=== PATIENT | female | born 1990 | race Caucasian/White ===

== ENCOUNTER 2018-04-12 18:52 | Emergency (ER) | payer BC ==
--- NOTE | 2018-04-12 19:06 | Emergency Department Record ---
History of Present Illness - General Chief Complaint: Abdominal Pain Stated Complaint: ABDOMINAL PAIN Time Seen by Provider: 04/12/18 18:59 Source: Patient Mode of Arrival: Ambulatory Limitations: No limitations - History of Present Illness Initial Comments: 28 yo female presents with lower abdominal pain. She has been have on and off pelvic pain since December or even a little before. The pain goes across the lower abdomen on the right and left. She has had some whitish discharge. No bleeding. No vomiting or diarrhea. No fevers. She saw her OB in the last month and had an US 2 weeks ago on 03/29. There was a 3.2cm SERINA. IUD intact. ( office note and US reviewed). Repeat the US in 4-6 weeks was the recommendation. He provider is Desire Jacobsen MD Complaint: Abdominal pain Onset/Timin -: Minutes(s) Radiation: None Migration to: No migration Severity: Mild Severity scale (1-10): 7 Quality: Stabbing, Other Consistency: Intermittent Improves With: Nothing Worsens With: Nothing Associated Symptoms: Denies other symptoms - Related Data LMP (females 10-50): other Previous Rx's Medication Instructions Recorded Nitrofurantoin Monohyd/M-Cryst 100 mg PO BID #14 capsule 04/12/18 [Macrobid 100 mg Capsule] Allergies Allergy/AdvReac Type Severity Reaction Status Date / Time Latex, Natural Rubber Allergy Intermediate RASH Unverified 02/17/18 08:43 Travel Screening - Travel/Exposure Within Last 30 Days Have you traveled within the last 30 days?: No - Travel/Exposure Within Last Year Have you traveled outside the [place] in the last year?: No - Additonal Travel Details Have you been exposed to anyone with a communicable illness?: No - Travel Symptoms Symptom Screening: None Review of Systems Constitutional: Denies: Chills, Fever, Malaise, Weakness Eyes: Denies: Eye discharge ENT: Denies: Congestion, Throat pain Respiratory: Denies: Cough Cardiovascular: Denies: Chest pain, Palpitations, Syncope Endocrine: Denies: Fatigue Gastrointestinal: Reports: Abdominal pain, Nausea. 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 negative: Conjunctival injection - ENT ENT exam: Normal exam, Mucous membranes moist, Normal external ear exam Ear exam: Normal external inspection Nasal Exam: Normal inspection Mouth exam: Normal external inspection - Neck Neck exam: Normal inspection - Respiratory Respiratory exam: Normal lung sounds bilaterally. negative: Respiratory distress - Cardiovascular Cardiovascular Exam: Regular rate, Normal rhythm, Normal heart sounds - GI/Abdominal GI/Abdominal exam: Soft, Tenderness (very soft abdomen. Minimally tender lower abdomen bilaterally). negative: Distended, Guarding, Rebound, Rigid - Rectal Rectal exam: Deferred - exam: Deferred - Extremities Extremities exam: Normal inspection - Back Back exam: Denies: CVA tenderness (R), CVA tenderness (L) - Neurological Neurological exam: Alert, Oriented X3 - Psychiatric Psychiatric exam: Normal affect, Normal mood - Skin Skin exam: Dry, Intact, Normal color, Warm Course Vital Signs 04/12/18 18:57 Temperature 98.1 F Pulse Rate 95 H Respiratory 20 Rate Blood Pressure 119/85 Pulse Ox 98 - Reevaluation(s) Reevaluation #1: The CBC was reviewed The CMP was unremarkable for significant changes The UCG was negative The UA demonstrated WBC,LE,Few Bacteria 04/12/18 19:49 The abdomen is very soft and benign on exam. She does not have fever, elevated WBC count, physical findings to suggest acute process. No CT indicated at this time. 04/12/18 20:07 04/12/18 20:27 The Wet prep was negative The culture is pending We discussed the results. I recommend treating the UA until the culture comes back. I recommend calling her OB for a follow up US. She was given instructions of returning to the ED as well for a recheck if any new concerns, uncontrolled pain, or new symptoms. Medical Decision Making - Lab Data Result diagrams: 04/12/18 17:27 04/12/18 17:27 Disposition Disposition: Discharge Clinical Impression: Pelvic pain Disposition: Home, Self-Care Condition: (1) Good Instructions: Pelvic Pain (ED) Additional Instructions: Call your family doctor and your OB for close follow up of the ER visit to review the tests and results You urine showed signs of possible infection. Take the antibiotics as directed. There is a culture that will be available in about 3 days. Be seen immediately if fever, vomiting, uncontrolled pain or any new concerns. Prescriptions: Nitrofurantoin Monohyd/M-Cryst [Macrobid 100 mg Capsule] 100 mg PO BID #14 capsule Forms: Patient Portal Access Time of Disposition: 20:30 Quality - Quality Measures Quality Measures: N/A - Blood Pressure Screening Does Patient Have Any of the Following: No Blood Pressure Classification: Pre-Hypertensive BP Reading Systolic Measurement: 119 Diastolic Measurement: 85 Screening for High Blood Pressure: < Pre-Hypertensive BP, F/U Documented > [ [id number]] Pre-Hypertensive Follow-up Interventions: Referral to alternative/primary care provider.
[2018-04-12] MEDS ORDERED: ONDANSETRON HCL IV 4 MG/2 ML VIAL IVP ONE (19:27)
[2018-04-12] MEDS ORDERED: MORPHINE SULFATE 10 MG/ML VIAL IVP ONE (19:27)
[2018-04-12] MEDS ORDERED: 0.9 % SODIUM CHLORIDE 1,000 ML BAG IV ONE (19:27)
[2018-04-12 19:38] LABS: BASO % 0.3 % (0-6); EOS % 0.6 % (0-6); GRAN % 78.8 % (47-80); HEMOGLOBIN 14.1 gm/dl (11.6-16.0); LYMPH % 14.2 % (16-45); MEAN CELL VOLUME 84.8 fl (81-97); MEAN CORPUSCULAR HEMOGLOBIN 28.5 pg (27-33); MEAN CORPUSCULAR HGB CONC 33.6 g/dl (32-36); MONO % 6.1 % (0-9); PLATELET COUNT 218 K/uL (130-400); RED BLOOD COUNT 4.95 M/uL (3.80-5.40); RED CELL DISTRIBUTION WIDTH 12.6 % (11.5-14.5)
[2018-04-12 19:39] LABS: URINE APPEARANCE SL CLOUDY; URINE BILIRUBIN NEGATIVE (NEGATIVE); URINE BLOOD NEGATIVE (NEGATIVE); URINE COLOR YELLOW; URINE GLUCOSE (UA) NEGATIVE (NEGATIVE); URINE KETONE NEGATIVE (NEGATIVE); URINE LEUKOCYTE ESTERASE SMALL (NEGATIVE); URINE NITRITE NEGATIVE (NEGATIVE); URINE PROTEIN NEGATIVE (NEGATIVE)
[2018-04-12] MEDS ORDERED: FENTANYL PF 100MCG/2ML VIAL IVP ONE (19:41)
[2018-04-12 19:47] LABS: BLOOD UREA NITROGEN 11 mg/dL (6-20); CREATININE 0.8 mg/dL (0.5-0.9); EST GLOMERULAR FILTRATION RATE > 60 mL/min; URINE BACTERIA 1+; URINE RBC 0 - 2 (NONE SEEN)
[2018-04-12 19:48] LABS: HCG,QUALITATIVE URINE NEGATIVE (NEGATIVE); TOTAL PROTEIN 7.4 g/dL (6.6-8.7)
[2018-04-12 19:50] LABS: GLUCOSE,RANDOM 87 mg/dL (74-109)
[2018-04-12 19:52] LABS: ALT/SGPT 16 U/L (<33); AST/SGOT 17 U/L (10.0-35.0)
[2018-04-12 19:53] LABS: ALB/GLOB RATIO 1.5 (1.1-1.8); ALBUMIN 4.4 g/dL (4.0-5.0); ALKALINE PHOSPHATASE 66 U/L (35-104); LIPASE 26 U/L (13-60)
[2018-04-12] MEDS ORDERED: HYDROCODONE/APAP 5/325MG TABLET PO ONE (20:29)
[2018-04-12] MEDS ORDERED: NITROFURANTOIN MONO 100 MG CAPSULE PO ONE (20:29)
== END 2018-04-12 20:42 | disposition home or self-care (01) ==
LOC: ER 18:52
DX: R10.2 Pelvic and perineal pain (principal)
CPT/HCPCS: 80053; 81001; 81025; 83690; 85025; 87210; 96374; 96375; 99284; J2405; J7030